=== PATIENT | male | born 1985 | race Caucasian/White ===

== ENCOUNTER 2023-12-17 21:51 | Inpatient (IN) | payer BC, MEDICAID, SELFPAY ==
[2023-12-17 21:59] VITALS: BP 145/90; PULSE 106; RESP 20; TEMP 36.8; O2SAT 92
[2023-12-17 22:00] VITALS: BP 145/90; PULSE 106; RESP 20; TEMP 36.8; O2SAT 92
[2023-12-17 22:02] VITALS: BMI 32.5
[2023-12-18 06:00] VITALS: BP 145/91; PULSE 110; RESP 18; TEMP 36.8; O2SAT 93
[2023-12-18] MEDS: thiamine 100 mg Tablet PO (07:35)
[2023-12-18] MEDS: multivitamin therapeutic Tablet 1 TAB PO (07:35)
[2023-12-18] MEDS: folic acid 1 mg Tablet PO (07:35)
[2023-12-18] MEDS: hyDROXYzine 25 mg Capsule 50 MG PO (07:40)
[2023-12-18] MEDS: calcium carbonate 500 mg Chew Tablet 1000 MG PO ×2 (08:23→12:11)
[2023-12-18] MEDS: OLANZapine 5 mg ODT PO ×2 (12:11→19:55)
[2023-12-18 14:00] VITALS: BP 170/95; PULSE 94; RESP 20; TEMP 36.9; O2SAT 92
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
[2023-12-18] MEDS: ondansetron 4 MG Tablet PO (19:55)
[2023-12-18] MEDS: trazodone 50 mg Tablet PO (19:55)
--- NOTE | 2023-12-18 20:58 | PC.NURSE ---
PT IS RESTING IN BED AROUSES TO VOICE. DENIES SI/HI AND AVH AT THIS TIME. DENIES PAIN. DOES REPORT NAUSEA WHICH RN ADMINISTERED ZOFRAN 4 MG ORDERED FOR NAUSEA. RATES ANXIETY 04/24 AND DEPRESSION 12/23. PT WAS GIVEN ZYDIS 5 MG ORDERED FOR ANXIETY. TRAZODONE 50 MG WAS ALSO GIVEN ORDERED FOR SLEEP. PT IS NOTED TO HAVE A FLAT AFFFECT AND GUARDED WITH STAFF. ALL QUESTIONS ANSWERED AND SUPPORT WAS VOICED.
[2023-12-18 21:33] VITALS: BP 123/74; PULSE 98; RESP 15; TEMP 37.1; O2SAT 92
--- NOTE | 2023-12-19 05:02 | PC.NURSE ---
PT RECEIVED PRN MEDICATIONS EARLIER IN THE SHIFT. PT RECEIVED ZOFRAN, ZYDIS AND TRAZODONE. ALL MEDICATIONS DEEMED EFFECTIVE AT THIS TIME. PT HAS HAD NO OTHER COMPLAINTS OF ANXIETY OR NAUSEA. PT HAS SLEPT APPROXIMATELY 9-10 HOURS THIS SHIFT. PT CONTINUES TO REST WITH EYES CLOSED WITH NO DISTRESS NOTED AT THIS TIME.
[2023-12-19 06:00] VITALS: BP 124/77; PULSE 88; RESP 16; TEMP 37; O2SAT 92
[2023-12-19] MEDS: multivitamin therapeutic Tablet 1 TAB PO (08:41)
[2023-12-19] MEDS: thiamine 100 mg Tablet PO (08:42)
[2023-12-19] MEDS: folic acid 1 mg Tablet PO (08:42)
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
[2023-12-19 12:21] VITALS: BP 124/77; PULSE 88; RESP 16; TEMP 37; O2SAT 92
[2023-12-19 14:00] VITALS: BP 131/92; PULSE 92; RESP 14; TEMP 36.9; O2SAT 93
== END 2023-12-19 16:13 | disposition home or self-care (01) | DRG 897 ==
PROVIDERS: Admitting Provider Psychiatry & Neurology Psychiatry; Visit Provider Psychiatry & Neurology Psychiatry
DX: F10.10 Alcohol abuse, uncomplicated (principal); R45.851 Suicidal ideations; F43.10 Post-traumatic stress disorder, unspecified; Z63.4 Disappearance and death of family member; Z62.810 Personal history of physical and sexual abuse in childhood; F43.21 Adjustment disorder with depressed mood
CPT/HCPCS: 94664; 97150; 97165; Q0162

== ENCOUNTER 2024-10-30 14:56 | Inpatient (IN) | payer BC, SELFPAY ==
[2024-10-30 15:11] VITALS: BP 135/88; PULSE 68; RESP 16; TEMP 36.6; O2SAT 97; BMI 32.5
--- NOTE | 2024-10-30 15:34 | W.ED.PSYCHS ---
HPI - Psych General: Chief Complaint: Psychiatric Symptoms Stated Complaint: MHE Time Seen by Provider: 10/30/24 15:01 Source: patient Mode of arrival: ambulatory Limitations: no limitations History of Present Illness: 39-year-old male who has been having depression its increased lately states he doubled the sertraline and his depression worsen denies any suicidal plans he was seen over at [facility] and they placed him on a 96-hour hold due to his depression and sent here. Denies any worse improved factors Associated symptoms: Reports depression Related Data Home Medications Medication Instructions Recorded Confirmed albuterol sulfate 90 mcg/actuation 2 puff inhalation .Q4-6H 10/30/24 10/30/24 aerosol inhaler (Ventolin HFA) atomoxetine 25 mg capsule 25 mg PO BID 10/30/24 10/30/24 fluticasone 250 mcg-salmeterol 50 1 inh inhalation BID 10/30/24 10/30/24 mcg/dose blistr powdr for inhalation (Advair Diskus) meloxicam 15 mg tablet 15 mg PO DAILY 10/30/24 10/30/24 metoprolol tartrate 50 mg tablet 50 mg PO BID 10/30/24 10/30/24 nicotine 7 mg/24 hr daily 7 mg transdermal DAILY 10/30/24 10/30/24 transdermal patch sertraline 100 mg tablet 100 mg PO DAILY 10/30/24 10/30/24 Allergies Allergy/AdvReac Type Severity Reaction Status Date / Time Penicillins Allergy Severe ALGY-Anaphy Verified 12/17/23 22:06 laxis Review of Systems Const: Denies: fever(s), chills, body aches or change in appetite ENMT: Denies: throat pain or dental pain Card: Denies: chest pain Resp: Denies: dyspnea GI: Denies: abdominal pain, nausea, vomiting or diarrhea Musc: Denies: neck pain or back pain Skin/Breast: Denies: rash Neuro: Denies: headache(s) Psych: Reports: depression Physical Exam Const: COMMON NORMALS: no acute distress, patient oriented x3 and healthy appearing HENMT: COMMON NORMALS: normocephalic and atraumatic HEAD & SCALP: normocephalic and atraumatic Neck/C-Spine: COMMON NORMALS: full ROM Chest: COMMONS NORMALS: normal inspection of the chest Resp: COMMON NORMALS: normal respiratory effort Cardio: COMMON NORMALS: regular rate RATE: regular rate Extremity: COMMON NORMALS: normal to inspection and full ROM Neuro: COMMON NORMALS: patient oriented x3, moves all extremities and no focal motor deficits Psych: COMMON NORMALS: mental status grossly normal, Normal thought process present and cooperative MOOD & AFFECT: Yes depressed mood THOUGHT PROCESS: Normal thought process present Skin: COMMON NORMALS: no rashes or lesions noted and no wounds GENERAL SKIN EXAM: no rashes or lesions noted Course Vital Signs: Vital signs: Vital Signs Temperature 97.8 F 10/30/24 15:11 Pulse Rate 68 10/30/24 15:11 Respiratory Rate 16 10/30/24 15:11 Blood Pressure 135/88 10/30/24 15:11 Pulse Oximetry 97 10/30/24 15:11 Oxygen Delivery Me thod Room Air 10/30/24 15:11 MDM - Psych Medical Decision Making Patient presents here depression he is placed on a 96-hour hold at [facility] patient is medically cleared I spoke to psychiatrist will admit at this time Medical Records I reviewed the patient's medical records. Lab Data I reviewed the patient's lab results. 10/30/24 15:57 10/30/24 15:57 Laboratory Results WBC 7.72 10^3/uL (3.29-11.43) 10/30/24 15:57 RBC 4.73 10^6/uL (3.85-5.65) 10/30/24 15:57 Hgb 14.90 g/dL (11.27-16.99) 10/30/24 15:57 Hct 45.4 % (37-53) 10/30/24 15:57 MCV 96.0 fl (82-101) 10/30/24 15:57 MCH 31.5 pg (27-33) 10/30/24 15:57 MCHC 32.8 g/dL (30-55) 10/30/24 15:57 RDW 12.8 % (12.1-15.1) 10/30/24 15:57 Plt Count 313 10^3/cmm (157-399) 10/30/24 15:57 MPV 9.8 fL (7.4-10.4) 10/30/24 15:57 Neut % (Auto) 53.7 % 10/30/24 15:57 Lymph % (Auto) 30.4 % 10/30/24 15:57 Whiteside % (Auto) 8.3 % 10/30/24 15:57 Eos % (Auto) 6.0 % 10/30/24 15:57 Baso % (Auto) 1.0 % 10/30/24 15:57 Neut # (Auto) 4.14 10^3/uL (1.8-7.7) 10/30/24 15:57 Lymph # (Auto) 2.4 10^3/uL (0.8-4.8) 10/30/24 15:57 Whiteside # (Auto) 0.6 10^3/uL (0.2-0.9) 10/30/24 15:57 Eos # (Auto) 0.5 10^3/uL (0.0-0.8) 10/30/24 15:57 Baso # (Auto) 0.1 10^3/uL (0.0-0.1) 10/30/24 15:57 Nucleated RBC % (auto) 0 % 10/30/24 15:57 Nucleated RBCs # 0.0 /100WBC 10/30/24 15:57 Urine Opiates Screen Negative ng/mL (Negative) 10/30/24 15:25 Ur Barbiturates Screen Negative ng/mL (Negative) 10/30/24 15:25 Ur Phencyclidine Scrn Negative ng/mL (Negative) 10/30/24 15:25 Ur Amphetamines Screen Negative ng/mL (Negative) 10/30/24 15:25 U Benzodiazepines Scrn Negative ng/mL (Negative) 10/30/24 15:25 Urine Cocaine Screen Negative ng/mL (Negative) 10/30/24 15:25 U Marijuana (THC) Screen Negative ng/mL (Negative) 10/30/24 15:25 No radiology studies performed this visit Discharge Plan Discharge Patient Disposition: Admitted As Inpatient Clinical Impression: Depression Condition: Stable Prescriptions: No Action fluticasone propion-salmeterol [Advair Diskus] 250-50 mcg/dose blister with device 1 inh INHALATION BID meloxicam 15 mg tablet 15 mg PO DAILY sertraline 100 mg tablet 100 mg PO DAILY metoprolol tartrate 50 mg tablet 50 mg PO BID albuterol sulfate [Ventolin HFA] 90 mcg/actuation HFA aerosol inhaler 2 puff INHALATION .Q4-6H nicotine 7 mg/24 hr patch 24 hour 7 mg transdermal DAILY atomoxetine 25 mg capsule 25 mg PO BID Coding Level of Care Code ED Paraprofessional Aide for Leo De La Torre
--- NOTE | 2024-10-30 15:41 | PC.PHAR ---
POSSIBLE ALLERGY TO VIVITRIOL?? NOT IN CHART
--- NOTE | 2024-10-30 15:56 | PC.NURSE ---
96 hour hold rights read and reviewed with patient. Patient stated I don't understand why I am being placed on a hold. I am not SI, I just wanted a medication adjustment. This nurse explained the concerned for his safety and gave him a copy of his rights. Patient verbalized understandings.
[2024-10-30 16:14] LABS: Basophils # 0.1 10^3/uL (0.0-0.1); Eosinophils # 0.5 10^3/uL (0.0-0.8); Hematocrit 45.4 % (37-53); Lymphocytes # 2.4 10^3/uL (0.8-4.8); Lymphocytes % 30.4 %; Mean Corpuscular HGB Conc 32.8 g/dL (30-55); Mean Corpuscular Hemoglobin 31.5 pg (27-33); Mean Platelet Volume 9.8 fL (7.4-10.4); Monocytes # 0.6 10^3/uL (0.2-0.9); Monocytes % 8.3 %; Neutrophils # 4.14 10^3/uL (1.8-7.7); Neutrophils % 53.7 %; Nucleated Red Blood Cells % 0 %; Platelet Count 313 10^3/cmm (157-399); Red Blood Count 4.73 10^6/uL (3.85-5.65); Red Cell Distribution Width 12.8 % (12.1-15.1); White Blood Count 7.72 10^3/uL (3.29-11.43)
[2024-10-30 16:19] LABS: Amphetamines Screen Urine Negative (Negative); Barbiturates Screen Urine Negative (Negative); Benzodiazepines Screen Urine Negative (Negative); Cocaine Screen Urine Negative (Negative); Opiate Screen Urine Negative (Negative); PCP Screen Urine Negative (Negative); THC Screen Urine Negative (Negative)
[2024-10-30] MEDS: LORazepam 1 mg Tablet PO (16:20)
[2024-10-30 16:34] LABS: Alanine Aminotransferase 21 U/L (0-41); Albumin Level 4.1 g/dL (3.5-5.2); Alkaline Phosphatase 59 U/L (40-130); Anion Gap 16.3 (5-19); Aspartate Amino Transferase 19 U/L (0-40); Blood Urea Nitrogen 12 mg/dL (6-20); Calcium 9.5 mg/dL (8.5-10.5); Carbon Dioxide 24 mmol/L (22-29); Chloride 101 mmol/L (98-107); Creatinine Clr Calc Pharmacy 166.6324; Globulin 2.3 g/dL (1.3-4.6); Glomerular Filtration Rate 126.2 mL/min (90-130); Glucose 89 mg/dL (65-115); Osmolality Calculated 283 mOsm/kg (285-295); Potassium 4.3 mmol/L (3.5-5.1); Sodium 137 mmol/L (136-145); Total Bilirubin 0.3 mg/dL (0.15-1.2); Total Protein 6.4 g/dL (6.6-8.7)
[2024-10-30 16:37] LABS: Acetaminophen < 5.0 ug/mL (10-30); Alcohol Level < 10 mg/dL (0-10); Salicylate < 0.3 mg/dL (3-10)
--- NOTE | 2024-10-30 17:51 | USR_ITS ---
PROCEDURE INFORMATION: Exam: US Scrotum Exam date and time: 10/30/2024 6:44 PM Age: 39 years old Clinical indication: Edema; Additional info: Swelling TECHNIQUE: Imaging protocol: Real-time ultrasound of the scrotum and contents with color Doppler and image documentation. COMPARISON: No relevant prior studies available. FINDINGS: Right testicle: Normal. No mass. Normal color Doppler and arterial waveforms. No torsion. Left testicle: Normal. No mass. Normal color Doppler and arterial waveforms. No torsion. Epididymides: 2 right epididymal head cysts noted measuring 6 and 4 mm respectively. A 5 mm left epididymal head cyst is noted. Scrotum/soft tissues: Normal. No hydroceles. US/US scrotum [id number] IMPRESSION: Bilateral epididymal head cysts. No acute abnormalities.
[2024-10-30 21:28] VITALS: BP 135/88; PULSE 68; O2SAT 97
[2024-10-30 21:43] VITALS: BP 134/91; PULSE 59; RESP 18; TEMP 36.6; O2SAT 94
[2024-10-30 22:00] VITALS: BP 134/91; PULSE 59; RESP 18; TEMP 36.6; O2SAT 94
[2024-10-30] MEDS: hyDROXYzine 25 mg Capsule 50 MG PO (22:31)
[2024-10-31 06:00] VITALS: BP 131/92; PULSE 86; RESP 17; TEMP 36.8; O2SAT 96
[2024-10-31] MEDS: sertraline 100 mg Tablet PO (08:23)
[2024-10-31] MEDS: metoprolol tartrate 50 mg Tablet PO ×2 (08:23→16:57)
[2024-10-31] MEDS: hyDROXYzine 25 mg Capsule 50 MG PO (11:39)
[2024-10-31 14:00] VITALS: BP 117/76; PULSE 61; RESP 16; TEMP 37.4; O2SAT 95
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
[2024-10-31 16:00] VITALS: PULSE 61; RESP 16; O2SAT 95
[2024-10-31 21:17] VITALS: PULSE 67; RESP 20; O2SAT 95
[2024-10-31] MEDS: budesonide 0.5 mg/2 mL Neb INHALATION (21:17)
[2024-10-31 21:50] VITALS: BP 107/63; PULSE 72; RESP 15; TEMP 36.6; O2SAT 98
[2024-11-01 06:00] VITALS: BP 125/84; PULSE 75; RESP 18; TEMP 36.6; O2SAT 96
[2024-11-01] MEDS: metoprolol tartrate 50 mg Tablet PO ×2 (08:01→17:21)
[2024-11-01] MEDS: sertraline 100 mg Tablet 50 MG PO (08:02)
[2024-11-01] MEDS: budesonide 0.5 mg/2 mL Neb INHALATION (08:47)
[2024-11-01 08:49] VITALS: PULSE 68; RESP 17; O2SAT 96
[2024-11-01] MEDS: hyDROXYzine 25 mg Capsule 50 MG PO (12:31)
[2024-11-01] MEDS: OLANZapine 5 mg ODT PO (12:59)
[2024-11-01 14:00] VITALS: BP 106/78; PULSE 70; RESP 16; TEMP 36.9; O2SAT 96
--- NOTE | 2024-11-01 15:15 | P.NPUPN_ITS ---
Subjective NPU 2 Subjective: 39-year-old male with a history of bipol ar depression admitted with increased irritability stemming from an increase in Zoloft over the past 2 weeks. The patient had a significant history of ADHD and polysubstance abuse as well. He had reported no cravings for opiates or alcohol at this time. He had reported continued struggles with staying on task. He had reported having some difficulties with falling asleep. The patient had reported that he would be agreeable to a mood stabilizer to target depression and possibly controlling periods of hypomania. He had endorsed of previous trial on multiple mood stabilizers for the treatment of an unspecified mood disorder during his adolescence. He had not endorsed a history of mood symptoms that were simply associated with substance use but had reported that even in periods of sobriety the mood fluctuations, irritability, decreased need for sleep and grandiosity had existed for 2 to 3 days. Mental Status Exam 2 MSE Comments: Patient is a well-developed white male who appeared older than his stated age with a juan complexion. His gait appeared adequate. His hygiene was fair. There was no evidence of any abnormal involuntary motor movements ,tics, or tremors appreciated. He was alert and oriented to person,place, time, and situation and was a fair historian. His speech was normal in regards to rate ,rhythm, and prosody. His mood was described as okay. His affect appeared restricted in range and mood incongruent. He denied any current homicidal but reported fleeting suicidal ideation. He did not appear to be responding internal stimuli. There was no clear evidence of delusional thinking. His attention span appeared poor. His insight was fair. His judgment was poor. His impulse control appeared limited. His recent and remote memory appear grossly intact. Vitals/I&O/Wt Last Vital Signs Temp 97.8 F 11/01/24 06:00 Pulse 68 11/01/24 08:49 Resp 17 11/01/24 08:49 BP 125/84 11/01/24 06:00 Pulse Ox 96 11/01/24 08:49 O2 Del Method Room Air 11/01/24 08:49 Data NPU 10/30/24 15:57 10/30/24 15:57 A&P Assessment and plan (1) Bipolar 2 disorder, major depressive episode: (2) Alcohol dependence: (3) Attention-deficit hyperactivity disorder, unspecified type: Plan 39-year-old male who presents with a history of worsening depression since an increase in Zoloft 200 mg who does report a history of hypomanic symptoms as well. The patient may benefit from medications to treat bipolar depression in lieu of Zoloft. Patient has maintained sobriety from alcohol at this time. He may also benefit from an adjustment with his Strattera as well to target ADHD symptoms. #1.? Engage patient in individual milieu and group therapy. #2?? Recommend sober living treatment at the highest level of care to which the patient is willing to commit #3??? Decrease zoloft to 25mg daily, add seroquel xr 100mg at 8PM. Continue Strattera 50mg daily. #4?? TO-15 minute checks? #5?? Will attempt to gather collateral information Involuntary Hold Information 2 96 Hour Hold: 96 Hour Involuntary Admission: No 96 Hour Hold Ending Date: 0 11/06/24 96 Hour Hold Ending Time: 00:01 Other Hold: Hold End Date: 11/06/24 Attestations NPU 2 Medical Necessity Statement*: Inpatient hospitalization is medically necessary and deemed to be the clinically appropriate intervention at this time.? Medications will be initiated and adjusted as clinically indicated.? The patient?s likely length of stay is 3-5 days.? Coding Level of Care Code Acute Code for [facility] Fwd Diagnoses Bipolar 2 disorder, major depressive episode F31.81 Alcohol dependence F10.20 Attention-deficit hyperactivity disorder, unspecified type F90.9
[2024-11-01] MEDS: trazodone 50 mg Tablet PO (20:43)
[2024-11-01] MEDS: quetiapine XR (24HR) 50 mg Tablet 100 MG PO (20:43)
[2024-11-01 21:37] VITALS: BP 98/64; PULSE 67; RESP 17; TEMP 36.4; O2SAT 96
[2024-11-02 06:00] VITALS: BP 110/78; PULSE 76; RESP 17; TEMP 36.4; O2SAT 97
[2024-11-02 08:00] VITALS: PULSE 82; RESP 18; O2SAT 94
[2024-11-02] MEDS: budesonide 0.5 mg/2 mL Neb INHALATION (08:04)
[2024-11-02] MEDS: albuterol 2.5 mg/3 mL Neb INHALATION (08:04)
[2024-11-02] MEDS: sertraline 50 mg Tablet 25 MG PO (09:32)
[2024-11-02] MEDS: metoprolol tartrate 50 mg Tablet PO ×2 (09:32→17:41)
[2024-11-02] MEDS: OLANZapine 5 mg ODT PO (12:43)
--- NOTE | 2024-11-02 13:12 | P.NPUPN_ITS ---
Subjective NPU 2 Subjective: 39-year-old male with a history of bipol ar depression admitted with increased irritability stemming from an increase in Zoloft over the past 2 weeks. The patient had reported sleeping better last night. He had reported less irritability. He had continued to report struggles with staying on task. He had been compliant on the milieu and was able to attend groups. He reported no side effects from the Seroquel given to him last night. He had reported depression but stated that he was feeling more hopeful. He had reported no cravings for opiates at this time. He had reported that his irritability appeared less frequent for him. Mental Status Exam 2 MSE Comments: Patient is a well-developed white male who appeared older than his stated age with a juan complexion. His gait appeared adequate. His hygiene was fair. There was no evidence of any abnormal involuntary motor movements ,tics, or tremors appreciated. He was alert and oriented to person,place, time, and situation and was a fair historian. His speech was normal in regards to rate ,rhythm, and prosody. His mood was described as a little better. His affect remained restricted in range and mood incongruent. He denied any current homicidal but reported fleeting suicidal ideation. He did not appear to be responding internal stimuli. There was no clear evidence of delusional thinking. His attention span appeared poor. His insight was fair. His judgment was poor. His impulse control appeared limited. His recent and remote memory appear grossly intact. Vitals/I&O/Wt Last Vital Signs Temp 97.5 F L 11/02/24 06:00 Pulse 82 11/02/24 08:00 Resp 18 11/02/24 08:00 BP 110/78 11/02/24 06:00 Pulse Ox 94 11/02/24 08:00 O2 Del Method Room Air 11/02/24 08:00 Data NPU 10/30/24 15:57 10/30/24 15:57 A&P Assessment and plan (1) Bipolar 2 disorder, major depressive episode: (2) Alcohol dependence: (3) Attention-deficit hyperactivity disorder, unspecified type: Plan 39-year-old male who presents with a history of worsening depression since an increase in Zoloft 200 mg who does report a history of hypomanic symptoms as well. The patient may benefit from medications to treat bipolar depression in lieu of Zoloft. Patient has maintained sobriety from alcohol at this time. He may also benefit from an adjustment with his Strattera as well to target ADHD symptoms. #1.? Engage patient in individual milieu and group therapy. #2?? Recommend sober living treatment at the highest level of care to which the patient is willing to commit #3??? Continue zoloft taper with plan to discontinue by 11/04/24. Increase seroquel xr 150mg at 8PM. Continue Strattera 50mg daily. #4?? TO-15 minute checks? #5?? Will attempt to gather collateral information Involuntary Hold Information 2 96 Hour Hold: 96 Hour Involuntary Admission: No 96 Hour Hold Ending Date: 0 11/06/24 96 Hour Hold Ending Time: 00:01 Other Hold: Hold End Date: 11/06/24 Attestations NPU 2 Medical Necessity Statement*: Inpatient hospitalization is medically necessary and deemed to be the clinically appropriate intervention at this time.? Medications will be initiated and adjusted as clinically indicated.? The patient?s likely length of stay is 3-5 days.? Coding Level of Care Code Acute Code for Chg Fwd Diagnoses Bipolar 2 disorder, major depressive episode F31.81 Alcohol dependence F10.20 Attention-deficit hyperactivity disorder, unspecified type F90.9
[2024-11-02] MEDS: nicotine 4 mg lozenge MUCOUS MEM ×2 (13:51→17:41)
[2024-11-02 14:00] VITALS: BP 114/80; PULSE 69; RESP 16; TEMP 36.9; O2SAT 95
[2024-11-02] MEDS: quetiapine XR (24HR) 50 mg Tablet 100 MG PO (20:28)
[2024-11-02 20:54] VITALS: PULSE 68; RESP 17; O2SAT 95
[2024-11-02 22:00] VITALS: BP 123/85; PULSE 65; RESP 18; O2SAT 97
[2024-11-03 06:00] VITALS: BP 118/81; PULSE 68; RESP 17; TEMP 36.6; O2SAT 96
[2024-11-03] MEDS: sertraline 50 mg Tablet 25 MG PO (08:14)
[2024-11-03] MEDS: metoprolol tartrate 50 mg Tablet PO ×2 (08:14→17:31)
[2024-11-03] MEDS: hyDROXYzine 25 mg Capsule 50 MG PO (13:15)
[2024-11-03 14:00] VITALS: BP 115/76; PULSE 66; RESP 16; TEMP 36.4; O2SAT 97
--- NOTE | 2024-11-03 15:52 | P.NPUPN_ITS ---
Subjective NPU 2 Subjective: 39-year-old male with a history of bipol ar depression admitted with increased irritability stemming from an increase in Zoloft over the past 2 weeks. The patient had reported feeling better. He stated that his moods were more stable. He had reported feeling less irritable and angry. He had reported improved sleep last night. He had denied any racing thoughts. He reported no cravings for opiates at this time nor did he endorse any thoughts of suicide today. Mental Status Exam 2 MSE Comments: Patient is a well-developed white male who appeared older than his stated age with a juan complexion. His gait appeared adequate. His hygiene was fair. There was no evidence of any abnormal involuntary motor movements ,tics, or tremors appreciated. He was alert and oriented to person,place, time, and situation and was a fair historian. His speech was normal in regards to rate ,rhythm, and prosody. His mood was described as better. His affect remained restricted in range and mood incongruent. He denied any current homicidal but reported fleeting suicidal ideation. He did not appear to be responding internal stimuli. There was no clear evidence of delusional thinking. His attention span appeared variable. His insight was fair. His judgment was poor. His impulse control appeared better. His recent and remote memory appear grossly intact. Vitals/I&O/Wt Last Vital Signs Temp 97.6 F 11/03/24 14:00 Pulse 66 11/03/24 14:00 Resp 16 11/03/24 14:00 BP 115/76 11/03/24 14:00 Pulse Ox 97 11/03/24 14:00 O2 Del Method Room Air 11/03/24 14:00 Weight last 48 hrs Weight 107.955 kg Data NPU 10/30/24 15:57 10/30/24 15:57 A&P Assessment and plan (1) Bipolar 2 disorder, major depressive episode: (2) Alcohol dependence: (3) Attention-deficit hyperactivity disorder, unspecified type: Plan 39-year-old male who presents with a history of worsening depression since an increase in Zoloft 200 mg who does report a history of hypomanic symptoms as well. The patient may benefit from medications to treat bipolar depression in lieu of Zoloft. Patient has maintained sobriety from alcohol at this time. He may also benefit from an adjustment with his Strattera as well to target ADHD symptoms. #1.? Engage patient in individual milieu and group therapy. #2?? Recommend sober living treatment at the highest level of care to which the patient is willing to commit #3??? Discontinue zoloft on 11/03/24. Increase seroquel xr 150mg at 8PM. Continue Strattera 50mg daily. #4?? TO-15 minute checks? Involuntary Hold Information 2 96 Hour Hold: 96 Hour Involuntary Admission: No 96 Hour Hold Ending Date: 0 11/06/24 96 Hour Hold Ending Time: 00:01 Other Hold: Hold End Date: 11/06/24 Attestations NPU 2 Medical Necessity Statement*: Inpatient hospitalization is medically necessary and deemed to be the clinically appropriate intervention at this time.? Medications will be initiated and adjusted as clinically indicated.? The patient?s likely length of stay is 3-5 days.? Coding Level of Care Code Acute Code for [facility] Fwd Diagnoses Bipolar 2 disorder, major depressive episode F31.81 Alcohol dependence F10.20 Attention-deficit hyperactivity disorder, unspecified type F90.9
[2024-11-03] MEDS: quetiapine XR (24HR) 50 mg Tablet 150 MG PO (20:58)
[2024-11-03] MEDS: trazodone 50 mg Tablet PO (21:00)
[2024-11-03 22:00] VITALS: BP 109/73; PULSE 58; RESP 18; TEMP 36.3; O2SAT 98
[2024-11-04 06:00] VITALS: BP 108/64; PULSE 95; RESP 17; TEMP 36.4; O2SAT 96
[2024-11-04 08:00] VITALS: PULSE 70; RESP 16; O2SAT 96
[2024-11-04] MEDS: metoprolol tartrate 50 mg Tablet PO ×2 (08:10→17:23)
[2024-11-04] MEDS: budesonide 0.5 mg/2 mL Neb INHALATION (09:23)
[2024-11-04 14:00] VITALS: BP 116/77; PULSE 70; RESP 17; TEMP 36.6; O2SAT 97
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
[2024-11-04 14:06] VITALS: BP 108/64; PULSE 95; RESP 17; TEMP 36.4; O2SAT 96
[2024-11-04] MEDS: OLANZapine 5 mg ODT PO (15:31)
--- NOTE | 2024-11-04 16:45 | PC.NURSE ---
verbal and written discharge instruction discussed with patient. at this time waiting for medicaid ride.
--- NOTE | 2024-11-04 18:04 | P.NPUPN_ITS ---
Subjective NPU 2 Subjective: 39-year-old male with a history of bipol ar depression admitted with increased irritability stemming from an increase in Zoloft over the past 2 weeks. No substantial changes noted from yesterday. Patient was scheduled to be discharged today and is currently awaiting transportation to [place]. Mental Status Exam 2 MSE Comments: Patient is a well-developed white male who appeared older than his stated age with a juan complexion. His gait appeared adequate. His hygiene was fair. There was no evidence of any abnormal involuntary motor movements ,tics, or tremors appreciated. He was alert and oriented to person,place, time, and situation and was a fair historian. His speech was normal in regards to rate ,rhythm, and prosody. His mood was described as better. His affect appeared brighter on discharge. He denied any current homicidal but reported fleeting suicidal ideation. He did not appear to be responding internal stimuli. There was no clear evidence of delusional thinking. His attention span appeared variable. His insight was fair. His judgment was improving. His impulse control appeared better. His recent and remote memory appear grossly intact. Vitals/I&O/Wt Last Vital Signs Temp 97.5 F L 11/05/24 05:49 Pulse 68 11/05/24 05:49 Resp 16 11/05/24 05:49 BP 109/79 11/05/24 05:49 Pulse Ox 97 11/05/24 05:49 O2 Del Method Room Air 11/05/24 05:49 Data NPU 10/30/24 15:57 10/30/24 15:57 A&P Assessment and plan (1) Bipolar 2 disorder, major depressive episode: (2) Alcohol dependence: (3) Attention-deficit hyperactivity disorder, unspecified type: Plan 39-year-old male who presents with a history of worsening depression since an increase in Zoloft 200 mg who does report a history of hypomanic symptoms as well. The patient may benefit from medications to treat bipolar depression in lieu of Zoloft. Patient has maintained sobriety from alcohol at this time. He may also benefit from an adjustment with his Strattera as well to target ADHD symptoms. #1.? Engage patient in individual milieu and group therapy. #2?? Recommend sober living treatment at the highest level of care to which the patient is willing to commit #3??? Discontinue zoloft on 11/03/24. Increase seroquel xr 150mg at 8PM. Continue Strattera 50mg daily. #4?? TO-15 minute checks? #5 Awaiting discharge today. Involuntary Hold Information 2 96 Hour Hold: 96 Hour Involuntary Admission: No 96 Hour Hold Ending Date: 0 11/06/24 96 Hour Hold Ending Time: 00:01 Other Hold: Hold End Date: 11/06/24 Attestations NPU 2 Medical Necessity Statement*: Inpatient hospitalization is medically necessary and deemed to be the clinically appropriate intervention at this time.? Medications will be initiated and adjusted as clinically indicated.? The patient?s likely length of stay is 1 day. ? Coding Level of Care Code Acute Code for g Fwd Diagnoses Bipolar 2 disorder, major depressive episode F31.81 Alcohol dependence F10.20 Attention-deficit hyperactivity disorder, unspecified type F90.9
--- NOTE | 2024-11-04 18:16 | PC.NURSE ---
[facility] CONTINUES TO CALL AND STATE NO ONE HAS PICKED UP THE RIDE. [facility] CALLED A TOTAL OF 4 TIMES SINCE 1400 STATING THEY ARE UNABLE TO FIND A RIDE FOR PT TO GO BACK TO [facility]. [facility] CALLED BACK AT 1814 AND INFORMED THIS RN THEY CAN SET UP THE RIDE FOR 800 AM BUT IT IS NOT A GUARANTEE THAT PT WILL GET A RIDE AT THAT TIME OR ANY OTHER TIME THROUGHOUT THE DAY, WE CAN ONLY TRY TO GET THE RIDE PICKED UP. PT HAS ALSO ATTEMPTED TO CONTACT [facility] WITH NO ANSWER. THIS RN ATTEMPTED TO CALL [facility] AND RECEIVED VOICE MAIL. [facility] NURSE WAS CONTACTED AND THIS RN WAS INFORMED TO WAIT TO SEE IF [facility] WILL [facility] THE RIDE AT 0800 AM. RN INFORMED PT.
[2024-11-04] MEDS: quetiapine XR (24HR) 50 mg Tablet 150 MG PO (20:09)
[2024-11-04] MEDS: hyDROXYzine 25 mg Capsule 50 MG PO (20:09)
[2024-11-04 20:38] VITALS: BP 107/65; PULSE 63; RESP 16; TEMP 36.6; O2SAT 95
[2024-11-05 05:49] VITALS: BP 109/79; PULSE 68; RESP 16; TEMP 36.4; O2SAT 97
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
== END 2024-11-05 07:00 | disposition home or self-care (01) | DRG 885 ==
LOC: ER 16:25 → NP 17:18
PROVIDERS: Admitting Provider Psychiatry & Neurology Psychiatry; Emergency Provider Emergency Medicine; Visit Provider Psychiatry & Neurology Psychiatry
DX: F31.81 Bipolar II disorder (principal); R45.851 Suicidal ideations; F10.20 Alcohol dependence, uncomplicated; F90.9 Attention-deficit hyperactivity disorder, unspecified type; Z88.0 Allergy status to penicillin
CPT/HCPCS: 36415; 76870; 80053; 80306; 80307; 85025; 94640; 97150; 97165; 99285; J7613; J7626